=== PATIENT | male | born 1990 | race African-American/Black ===

== ENCOUNTER 2019-10-22 09:08 | Emergency (ER) | payer MEDICAID ==
[~2019-10-22] VITALS: Ht 175.3 cm; Wt 66.7 kg
[2019-10-22 09:16] VITALS: BP 129/77
== END 2019-10-22 09:39 | disposition home or self-care (01) ==
LOC: EMS 09:12
DX: F41.9 Anxiety disorder, unspecified (principal); G47.00 Insomnia, unspecified; F17.210 Nicotine dependence, cigarettes, uncomplicated; F12.90 Cannabis use, unspecified, uncomplicated
CPT/HCPCS: 99283; Z7502

== ENCOUNTER 2019-11-08 06:12 | Inpatient (IN) | payer MEDICAID ==
[~2019-11-08] VITALS: Ht 175.3 cm; Wt 66.1 kg
[2019-11-08 07:07] LABS: BASOPHILS % (AUTO) 0.6 % (0.0-2.0); EOSINOPHILS % (AUTO) 1.4 % (1.0-6.0); HEMOGLOBIN 14.9 g/dL (13.5-17.5); LYMPHOCYTES # (AUTO) 1.4 K/uL (1.0-4.8); LYMPHOCYTES % (AUTO) 18.9 % (22.0-44.0); MEAN CORPUSCULAR HEMOGLOBIN 26.5 pg (26.0-34.0); MEAN CORPUSCULAR HGB CONC 31.7 G/dL (31.0-37.0); MEAN CORPUSCULAR VOLUME 84 fL (80-100); MONOCYTES # (AUTO) 0.6 K/uL (0.1-1.0); MONOCYTES % (AUTO) 8.5 % (2.0-9.0); NEUTROPHILS # (AUTO) 5.2 K/uL (1.8-7.7); NEUTROPHILS % (AUTO) 70.6 % (40.0-70.0); PLATELET COUNT (AUTO) 243 K/uL (150-450); RED BLOOD CELL COUNT(AUTO) 5.62 MIL/uL (4.50-5.90); RED CELL DISTRIBUTION WIDTH 15.1 % (11.5-14.5)
[2019-11-08 07:13] LABS: ANION GAP 4 mmol/L (8-16); CALCIUM, TOTAL 9.2 mg/dL (8.8-10.5); CARBON DIOXIDE 33 mmol/L (22-29); CHLORIDE 103 mmol/L (98-107); CREATININE 1.27 mg/dL (0.60-1.30); GLOMERULAR FILTR. RATE CALC > 60 mL/min (>60); GLUCOSE,RANDOM 100 mg/dL (70-110); POTASSIUM 3.9 mmol/L (3.5-5.1); SODIUM SERUM 140 mmol/L (136-145); UREA NITROGEN, BLOOD 14 mg/dL (7-18)
[2019-11-08 07:20] LABS: ALANINE AMINOTRANSFERASE 20 U/L (12-78); ALKALINE PHOSPHATASE 74 U/L (46-116); ASPARTATE AMINOTRANSFERASE 21 U/L (15-37); BILIRUBIN,TOTAL 0.7 mg/dL (0.1-1.0); TOTAL PROTEIN, SERUM 8.4 g/dL (6.4-8.2)
[2019-11-08 08:47] LABS: AMPHET/METH SCREEN,URINE POSITIVE (NEGATIVE); BARBITURATE SCREEN, URINE NEGATIVE (NEGATIVE); BENZODIAZEPINES SCREEN,URINE NEGATIVE (NEGATIVE); CANNABINOID SCREEN,URINE POSITIVE (NEGATIVE); COCAINE SCREEN,URINE NEGATIVE (NEGATIVE); METHADONE SCREEN, URINE NEGATIVE (NEGATIVE); OPIATE SCREEN,URINE NEGATIVE (NEGATIVE)
[2019-11-08 08:48] LABS: PHENCYCLIDINE SCREEN,URINE POSITIVE (NEGATIVE)
[2019-11-08] MEDS ORDERED: LORazepam 2 MG TABLET PO PRN (09:15)
[2019-11-08] MEDS ORDERED: ZOLPIDEM TARTRATE 10 MG TABLET PO PRN (09:15)
[2019-11-08] MEDS ORDERED: HALOPERIDOL 5 MG TABLET PO PRN (09:15)
[2019-11-08 10:30] LABS: APPEARANCE,URINE CLEAR (CLEAR); GLUCOSE, URINE (UA) NEGATIVE (NEGATIVE); KETONES,URINE TRACE mg/dL (NEGATIVE); LEUKOCYTE ESTERASE ,URINE NEGATIVE (NEGATIVE); NITRATE,URINE NEGATIVE (NEGATIVE); OCCULT BLOOD,URINE NEGATIVE (NEGATIVE); PROTEIN,URINE NEGATIVE (NEGATIVE)
[2019-11-08 10:35] LABS: BILIRUBIN,URINE PRELIM. POSITIVE (NEGATIVE)
[2019-11-08 10:46] LABS: BACTERIA,URINE None Seen /HPF (None Seen); RBC,URINE None Seen /HPF (0-2); WBC,URINE None Seen /HPF (0-5)
[2019-11-08 12:52] VITALS: BP 121/78
[2019-11-08 16:30] VITALS: BP 105/55
[2019-11-09 06:41] VITALS: BP 122/86
[2019-11-09 07:52] LABS: CHOL/HDL RATIO 2.9 (4.2-7.3)
[2019-11-09] MEDS: ARIPiprazole 5 MG TABLET PO SCH (12:00)
[2019-11-09 16:02] VITALS: BP 116/72
[2019-11-10 00:30] VITALS: BP 120/78
[2019-11-10 08:03] VITALS: BP 100/62
[2019-11-10] MEDS: ARIPiprazole 5 MG TABLET PO SCH (08:29)
[2019-11-10 16:01] VITALS: BP 113/72
[2019-11-11 04:21] VITALS: BP 120/65
[2019-11-11] MEDS: ARIPiprazole 5 MG TABLET PO SCH (08:37)
[2019-11-11 08:38] VITALS: BP 115/80
[2019-11-11] MEDS ORDERED: ARIP5TAB8 PO (09:47)
== END 2019-11-11 11:20 | disposition home or self-care (01) | DRG 885 ==
LOC: EMS 06:12 → B2S 09:15 → UNDOADMIN 10:12 → B2S 10:12
DX: F29 Unspecified psychosis not due to a substance or known physiological condition (principal); F79 Unspecified intellectual disabilities; R45.851 Suicidal ideations; F12.10 Cannabis abuse, uncomplicated; F17.210 Nicotine dependence, cigarettes, uncomplicated; F15.10 Other stimulant abuse, uncomplicated; K59.00 Constipation, unspecified; K21.9 Gastro-esophageal reflux disease without esophagitis; I95.9 Hypotension, unspecified; Z79.899 Other long term (current) drug therapy; Z87.828 Personal history of other (healed) physical injury and trauma; Z71.6 Tobacco abuse counseling; Z71.51 Drug abuse counseling and surveillance of drug abuser
CPT/HCPCS: G0480